=== PATIENT | male | born 1995 | race African-American/Black ===

== ENCOUNTER 2017-06-27 04:14 | Inpatient (IN) | payer OTHER ==
[~2017-06-27] VITALS: Ht 193 cm; Wt 116.6 kg
[2017-06-27] VITALS (8 sets, daily range): BP systolic 128–163; BP diastolic 62–94
[2017-06-27 04:47] LABS: BASOPHILS % 0.5 % (0.0-1.0); EOSINOPHILS # (AUTO) 0.1 (0.0-0.4); EOSINOPHILS % 1.7 % (0.0-6.0); HEMATOCRIT 42.9 % (34.2-44.1); HEMOGLOBIN 14.8 g/dL (12.0-16.0); LYMPHOCYTES # (AUTO) 3.2 (1.0-3.2); LYMPHOCYTES % 53.4 % (18.0-39.1); MEAN CORPUSCULAR HEMOGLOBIN 27.7 pg (28-32); MEAN CORPUSCULAR HGB CONC 34.5 g/dL (31-35); MEAN CORPUSCULAR VOLUME 80.3 fL (81-99); MONOCYTES # (AUTO) 0.6 (0.2-0.8); MONOCYTES % 9.8 % (4.4-11.3); NEUTROPHILS # (AUTO) 2.1 (2.1-6.9); NEUTROPHILS % 34.4 % (38.7-80.0); PLATELET COUNT 207 x10e3/uL (140-360); RED BLOOD COUNT 5.34 x10e6/uL (3.6-5.1); RED CELL DISTRIBUTION WIDTH 13.4 % (11.7-14.4)
--- NOTE | 2017-06-27 05:16 | Diagnostic Imaging Report ---
EXAMINATION: CHEST SINGLE (PORTABLE) INDICATION: Chest pain. COMPARISON: None FINDINGS: TUBES and LINES: None. LUNGS: Lungs are well inflated. Lungs are clear. There is no evidence of pneumonia or pulmonary edema. PLEURA: No pleural effusion or pneumothorax. HEART AND MEDIASTINUM: The cardiomediastinal silhouette is unremarkable. BONES AND SOFT TISSUES: No acute osseous lesion. Soft tissues are unremarkable. UPPER ABDOMEN: No free air under the diaphragm. IMPRESSION: No acute thoracic abnormality. Signed by: Dr. Mckinley Gooden M.D. on 06/27/2017 5:13 AM
[2017-06-27 05:17] LABS: CREATINE KINASE MB 3.4 ng/mL (0-5.0)
[2017-06-27 05:18] LABS: ALBUMIN 4.3 g/dL (3.5-5.0); ALBUMIN/GLOBULIN RATIO 1.1 (0.8-2.0); ANION GAP 15.7 mmol/L (8-16); CALCIUM 9.2 mg/dL (8.4-10.2); CREATININE, SERUM 1.41 mg/dL (0.57-1.11); POTASSIUM 3.7 mmol/L (3.5-5.1)
[2017-06-27] MEDS ORDERED: SODIUM CHLORIDE 0.9% 1000ML 1,000 ML IV ONE (05:30)
[2017-06-27] MEDS ORDERED: SODIUM CHLORIDE 0.9% 1000ML 1,000 ML ONE (05:30)
--- OUTSIDE RECORDS SUMMARY | 2017-06-27 05:44 | XMS REPORT ---
[facility] Address Unknown Phone Unavailable Care Team Providers Care Mold Yard Supervisor Name Role Phone ANGELIQUE COELLO Unavailable Unavailable Problems This patient has no known problems. Allergies, Adverse Reactions, Alerts This patient has no known allergies or adverse reactions. Medications This patient has no known medications. Results Test Description Test Time Test Comments Text Results Atomic Results Result Comments CHEST SINGLE (PORTABLE) [place] [address] Patient Name: YURI WATERS MR #: [id number] : 1995 Age/Sex: 22/F Req #: [id number] Adm Physician: Ordered by: ANGELIQUE COELLO MD Report #: [id number] Location: ER Room/Bed: ___ Procedure: [id number] DX/CHEST SINGLE (PORTABLE) Exam Date: 06/27/17 Exam Time: 0440 REPORT STATUS: Signed EXAMINATION: CHEST SINGLE (PORTABLE) INDICATION: Chest pain. COMPARISON: None FINDINGS: TUBES and LINES: None. LUNGS: Lungs are well inflated. Lungs are clear. There is no evidence of pneumonia or pulmonary edema. PLEURA: No pleural effusion or pneumothorax. HEART AND MEDIASTINUM: The cardiomediastinal silhouette is unremarkable. BONES AND SOFT TISSUES: No acute osseous lesion. Soft tissues are unremarkable. UPPER ABDOMEN: No free air under the diaphragm. IMPRESSION: No acute thoracic abnormality. Signed by: Dr. Mckinley Gooden M.D. on 06/27/2017 5:13 AM Dictated By: MCKINLEY GONZALEZ MD 2 Transcribed By: YURI on 06/27/17512 COPY TO: ANGELIQUE COELLO MD
--- OUTSIDE RECORDS SUMMARY | 2017-06-27 05:44 | XMS REPORT | Clinical Summary ---
Author Author [facility] Address Unknown Phone Unavailable Care Team Providers Care Through Operator Name Role Phone Clif Pepe MD PCP Allergies No Known Allergies Current Medications Prescription Sig. Disp. Refills Start End Date Status Date albuterol (PROAIR Inhale 2 puffs every 6 18 g 11 12/07/19 12/07/19 Active HFA,PROVENTIL (six) hours as needed for 17 18 HFA,VENTOLIN HFA) 90 wheezing. mcg/actuation inhaler Active Problems Not on file Encounters Date Type Specialty Care Team Description 02/20/2017 Telephone Internal Medicine Lyubov Pepe MD Annual physical exam (Primary Dx) 02/15/2017 Telephone Internal Medicine Lyubov Pepe MD Physical exam, pre-employment (Primary Dx) 12/06/2016 Lab Lab Lyubov Pepe MD STD exposure 12/06/2016 Lab Lab Lyubov Pepe MD STD exposure 12/06/2016 Lab Lab Lyubov Pepe MD STD exposure 12/06/2016 Office Visit Internal Medicine Lyubov Pepe MD Testicular pain (Primary Dx); STD exposure after 06/26/2016 Social History Tobacco Use Types Packs/Day Years Used Date Never Smoker Smokeless Tobacco: Never Used Alcohol Use Drinks/Week oz/Week Comments No Sex Assigned at Date Recorded Not on file Last Filed Vital Signs Vital Sign Reading Time Taken Blood Pressure 139/79 12/06/2016 1:15 PM CDT Pulse 78 12/06/2016 1:15 PM CDT Temperature - - Respiratory Rate 16 12/06/2016 1:15 PM CDT Oxygen Saturation 98% 12/06/2016 1:15 PM CDT Inhaled Oxygen - - Concentration Weight 122 kg (269 lb) 12/06/2016 1:15 PM CDT Height 193 cm (6' 4") 12/06/2016 1:15 PM CDT Body Mass Index 32.74 12/06/2016 1:15 PM CDT Plan of Treatment Health Maintenance Due Date Last Done Comments INFLUENZA VACCINE 11/21/2016 Results * US Scrotal (12/11/2016 5:11 PM) Specimen Performing Laboratory [facility] [address] [place] [address] Narrative EXAMINATION:US SCROTAL CLINICAL HISTORY:N50.819 Testicular painunspecified, testicular pain COMPARISON:None. TECHNIQUE:Sonographic evaluation of the scrotum. Real-time B mode grayscale , Doppler spectral analysis and Doppler color flow imaging was used to assess testicular vasculature. FINDINGS: RIGHT HEMISCROTUM: The right testicle measures 4.0 x 2.0 x 2.9 cm.. Testicular echogenicity is normal. No intratesticular masses are identified. There is normal color and duplex Doppler flow. The right epididymis is unremarkable. There is no hydrocele. There is minimal varicocele. LEFT HEMISCROTUM: The left testicle measures 3.9 x 1.8 x 3.1 cm.. Testicular echogenicity is normal. No intratesticular masses are identified. There is normal color and duplex Doppler flow. The left epididymis is unremarkable. There is no hydrocele. There is a small varicocele. There was no evidence of inguinal hernia on either side. IMPRESSION: Normal scrotal ultrasound examination. [facility]-[id number] Procedure Note Interface, Radiology Results Incoming - 12/11/2016 5:33 PM CDT EXAMINATION: US SCROTAL CLINICAL HISTORY: N50.819 Testicular pain unspecified, testicular pain COMPARISON: None. TECHNIQUE: Sonographic evaluation of the scrotum. Real-time B mode grayscale, Doppler spectral analysis and Doppler color flow imaging was used to assess testicular vasculature. FINDINGS: RIGHT HEMISCROTUM: The right testicle measures 4.0 x 2.0 x 2.9 cm.. Testicular echogenicity is normal. No intratesticular masses are identified. There is normal color and duplex Doppler flow. The right epididymis is unremarkable. There is no hydrocele. There is minimal varicocele. LEFT HEMISCROTUM: The left testicle measures 3.9 x 1.8 x 3.1 cm.. Testicular echogenicity is normal. No intratesticular masses are identified. There is normal color and duplex Doppler flow. The left epididymis is unremarkable. There is no hydrocele. There is a small varicocele. There was no evidence of inguinal hernia on either side. IMPRESSION: Normal scrotal ultrasound examination. [facility]-[id number] * Trichomonas vaginalis RNA, Qualitative, TMA, Males (12/06/2016 3:21 PM) Component Value Ref Range Trichomonas vaginalis RNA NOT DETECTED qualitative TMA, males Comment: REFERENCE RANGE: NOT DETECTED This test was performed using the APTIMA(R) Trichomonas vaginalis assay (GEN-PROBE(R)). The analytical performance characteristics of this assay have been determined by [facility]. The modifications have not been cleared or approved by the FDA. This assay has been validated pursuant to the CLIA regulations and is used for clinical purposes. For more information on this test, go to: http://education.[employer]!/faq/Trichomo nastma Specimen Performing Laboratory [facility] * CHLAMYDIA/N. GONORRHOEAE RNA, TMA (12/06/2016 2:03 PM) Component Value Ref Range Chlamydia trachomatis NOT DETECTED NOT DETECTED RNA, TMA Neisseria gonorrhoeae NOT DETECTED NOT DETECTED RNA, TMA (Always message) Comment: This test was performed using the APTIMA COMBO2 Assay ([employer] The analytical performance characteristics of this assay, when used to test SurePath specimens have been determined by [facility]. Specimen Performing Laboratory [facility] * HIV 1/2 ANTIGEN/ANTIBODY, FOURTH GENERATION W/RFL (12/06/2016 2:02 PM) Component Value Ref Range HIV AG/AB 4th gen Non Reactive Non Reactive Specimen Performing Laboratory Blood [facility] Narrative Performed at: [id number] Life Agent: Cayetano Emmanuel MD, Phone:[phone] * RPR screen (12/06/2016 2:02 PM) Component Value Ref Range RPR Non Reactive Non Reactive Specimen Performing Laboratory Blood [facility] Narrative Performed at:[id number] Life Agent: Cayetano Emmanuel MD, Phone:[phone] after 06/26/2016 Insurance Payer Benefit Subscriber ID Type Phone Address Plan / Group xxxxxxxxx [facility] hospital
--- OUTSIDE RECORDS SUMMARY | 2017-06-27 05:44 | XMS REPORT | Clinical Summary ---
Author Author [facility] Address Unknown Phone Unavailable Care Team Providers Care Machinist Mechanic Name Role Phone PCP Unavailable Allergies No Known Allergies Current Medications No known medications Active Problems Not on file Family History Relation Name Status Comments Father Alive Mother Alive Social History Tobacco Use Types Packs/Day Years Used Date Never Smoker Alcohol Use Drinks/Week oz/Week Comments Yes 1 Standard 0.5 occasionally drinks or equivalent Sex Assigned at Date Recorded Not on file Last Filed Vital Signs Not on file Plan of Treatment Health Maintenance Due Date Last Done Comments INFLUENZA VACCINE 01/21/2017 Results Not on fileafter 06/26/2016
[2017-06-27] MEDS: SODIUM CHLORIDE 0.9% 1000ML 1,000 ML IV SCH ×6 (06:22→13:37)
[2017-06-27 07:34] LABS: CHOL/HDL RATIO 3.2 (3.9-4.7)
--- NOTE | 2017-06-27 07:46 | History and Physical ---
PRIMARY CARE PHYSICIAN: Dr. Cates in [place]. CHIEF COMPLAINT: Chest discomfort. HISTORY OF PRESENT ILLNESS: This is a 22-year-old man with a history of asthma, who developed chest tightness over the past few days without any shortness of breath, dizziness or diaphoresis. The patient admits to have been taking Pre-Workout or "black market cuts" for enhanced workout capabilities. He has been starting cross-fit 1 week ago. Now, the patient was found to have markedly elevated CPK of 7000. He is admitted for further evaluation and management. PAST MEDICAL HISTORY: Asthma. PAST SURGICAL HISTORY: None. ALLERGIES: PER ELECTRONIC MEDICAL RECORD. FAMILY HISTORY: No heart disease. SOCIAL HISTORY: The patient is single. He has no children. No alcohol, illicits or cigarettes. He works as a dispatcher. MEDICATIONS: Per electronic medical record. REVIEW OF SYSTEMS: Denies any dizziness or shortness of breath. PHYSICAL EXAMINATION VITAL SIGNS: Have been reviewed. GENERAL: In no acute distress. Resting in bed. HEENT: Anicteric. CARDIOVASCULAR: Normal S1 and S2. LUNGS: He has good breath sounds. ABDOMEN: Soft, nontender and nondistended. EXTREMITIES: No edema or calf tenderness. NEUROLOGICAL: He is alert and oriented times 3. Moving all extremities. SKIN: Dry. PSYCHIATRIC: Normal affect. LABS: Reviewed. MEDICATIONS: Reviewed. ASSESSMENT AND PLAN: This is a 22-year-old man with: 1. Acute rhabdomyolysis likely secondary to black market cuts, which is some type of anabolic material: Will rehydrate the patient with normal saline at 200 mL an hour. Will give 3 L boluses now. 2. Acute kidney injury: Rehydrate and reassess. 3. Acute transaminitis: Again, likely secondary to the exercise enhancer. 4. Obesity: Screen for diabetes and obtain lipid panel. 5. Prophylaxis: Heparin. 6. Disposition: Monitor closely. Follow up labs. Job#: [id number] SANG
--- NOTE | 2017-06-27 07:47 | History and Physical ---
ADDENDUM The patient also had chest discomfort. First cardiac enzyme is negative. Will obtain a second. Will obtain a 2-D echocardiogram. Job#: [id number] RI
[2017-06-27] MEDS: HEPARIN SOD (PORCINE) 5,000 UNIT/ML VIAL SC SCH ×2 (08:01→20:52)
[2017-06-27] MEDS: FAMOTIDINE 20 MG TAB PO SCH ×2 (08:01→17:28)
[2017-06-27 12:35] LABS: CREATINE KINASE MB 2.7 ng/mL (0-5.0)
[2017-06-27] MEDS ORDERED: PANTOPRAZOLE 40 MG 10ML VIAL ONE (16:30)
[2017-06-28] VITALS (7 sets, daily range): BP systolic 130–153; BP diastolic 63–76
[2017-06-28 00:12] LABS: AMPHETAMINES SCREEN,URINE NEGATIVE (NEGATIVE); BENZODIAZEPINES SCREEN,URINE NEGATIVE (NEGATIVE); PHENCYCLIDINE SCREEN,URINE NEGATIVE (NEGATIVE)
[2017-06-28] MEDS: SODIUM CHLORIDE 0.9% 1000ML 1,000 ML IV SCH ×5 (01:43→15:40)
[2017-06-28] MEDS ORDERED: SODIUM CHLORIDE 0.9% 1000ML 3,000 ML IV ONE (06:30)
[2017-06-28 07:01] LABS: ANION GAP 13.2 mmol/L (8-16); BLOOD UREA NITROGEN 11 mg/dL (7-26); BUN/CREATININE RATIO 9 (6-25); CALCIUM 9.4 mg/dL (8.4-10.2); CARBON DIOXIDE 24 mmol/L (22-29); CHLORIDE 109 mmol/L (98-107); CREATINE KINASE 3872 IU/L (30-200); CREATININE, SERUM 1.25 mg/dL (0.72-1.25); EST GLOMERULAR FILTRATION RATE > 60 ML/MIN (60-); GLUCOSE 92 mg/dL (74-118); POTASSIUM 4.2 mmol/L (3.5-5.1); SODIUM 142 mmol/L (136-145)
[2017-06-28 07:26] LABS: CHOL/HDL RATIO 3.2 (3.9-4.7); CHOLESTEROL 104 MD/DL (0-199); HDL CHOLESTEROL 33 MG/DL (40-60); LDL CHOLESTEROL 58 MG/DL (60-130); TRIGLYCERIDES 65 MG/DL (0-149)
[2017-06-28] MEDS: FAMOTIDINE 20 MG TAB PO SCH ×2 (07:37→16:44)
--- NOTE | 2017-06-28 08:49 | Progress Note ---
DATE: June 28, 2017 TIME: 6:00 a.m. OVERNIGHT: No events. REVIEW OF SYSTEMS: Denies any dizziness, chest pain. PHYSICAL EXAMINATION: VITAL SIGNS: Reviewed. GENERAL APPEARANCE: Tired-appearing man resting in bed. HEENT: Anicteric. CARDIOVASCULAR: Normal S1 and S2. LUNGS: Moderate breath sounds. ABDOMEN: Soft, nontender, nondistended. EXTREMITIES: No edema or calf tenderness. NEUROLOGICAL: Alert and oriented x3. Moving all extremities. SKIN: Dry. PSYCHIATRIC: Normal affect. LABS: Reviewed. MEDICATIONS: Reviewed. ASSESSMENT: A 22-year-old man. 1. Acute rhabdomyolysis. 2. Acute kidney injury. 3. Acute transaminitis. 4. Obesity. 5. Chest discomfort. PLAN: 1. His LDL is 44, triglyceride 115. 2. Creatine kinase was 7000, then 5000, last 3000. Will give him an additional 3 L bolus now. 3. Hemoglobin A1c is 5.3. 4. His renal function is improving. 5. Troponins were negative x2. 6. Follow up echocardiogram. 7. Continue fluid resuscitation. Follow creatine kinase. 8. His echocardiogram showed normal left ventricular ejection fraction of 50% to 55%, diastolic filling pattern is normal. Job#: [id number]
[2017-06-28] MEDS: HEPARIN SOD (PORCINE) 5,000 UNIT/ML VIAL SC SCH ×2 (09:44→20:49)
[2017-06-29] VITALS (8 sets, daily range): BP systolic 130–150; BP diastolic 60–69
[2017-06-29] MEDS: SODIUM CHLORIDE 0.9% 1000ML 1,000 ML IV SCH ×3 (01:59→20:08)
[2017-06-29 06:31] LABS: BASOPHILS % 0.5 % (0.0-1.0); EOSINOPHILS # (AUTO) 0.1 (0.0-0.4); EOSINOPHILS % 1.3 % (0.0-6.0); HEMOGLOBIN 14.1 g/dL (14.0-18.0); LYMPHOCYTES % 36.3 % (18.0-39.1); MEAN CORPUSCULAR HEMOGLOBIN 27.8 pg (28-32); MEAN CORPUSCULAR HGB CONC 34.4 g/dL (31-35); MEAN CORPUSCULAR VOLUME 80.9 fL (81-99); MONOCYTES # (AUTO) 0.5 (0.2-0.8); MONOCYTES % 8.2 % (4.4-11.3); NEUTROPHILS % 53.7 % (38.7-80.0); PLATELET COUNT 183 x10e3/uL (140-360); RED BLOOD COUNT 5.07 x10e6/uL (4.3-5.7); RED CELL DISTRIBUTION WIDTH 13.2 % (11.7-14.4)
[2017-06-29] MEDS: FAMOTIDINE 20 MG TAB PO SCH ×2 (07:36→16:11)
[2017-06-29 07:56] LABS: ANION GAP 14.2 mmol/L (8-16); BLOOD UREA NITROGEN 10 mg/dL (7-26); BUN/CREATININE RATIO 8 (6-25); CALCIUM 9.5 mg/dL (8.4-10.2); CARBON DIOXIDE 24 mmol/L (22-29); CHLORIDE 108 mmol/L (98-107); CREATINE KINASE 2040 IU/L (30-200); CREATININE, SERUM 1.28 mg/dL (0.72-1.25); EST GLOMERULAR FILTRATION RATE > 60 ML/MIN (60-); GLUCOSE 94 mg/dL (74-118); MAGNESIUM 2.1 MG/DL (1.3-2.1); PHOSPHORUS 4.2 MG/DL (2.3-4.7); POTASSIUM 4.2 mmol/L (3.5-5.1); SODIUM 142 mmol/L (136-145)
[2017-06-29] MEDS: HEPARIN SOD (PORCINE) 5,000 UNIT/ML VIAL SC SCH ×2 (10:05→22:20)
[2017-06-30] VITALS: BP 147/80
[2017-06-30] MEDS: SODIUM CHLORIDE 0.9% 1000ML 1,000 ML IV SCH ×2 (02:16→10:05)
[2017-06-30 04:00] VITALS: BP 124/68
[2017-06-30 07:27] LABS: BASOPHILS % 0.6 % (0.0-1.0); EOSINOPHILS # (AUTO) 0.1 (0.0-0.4); EOSINOPHILS % 1.9 % (0.0-6.0); HEMATOCRIT 42.5 % (38.2-49.6); HEMOGLOBIN 14.9 g/dL (14.0-18.0); LYMPHOCYTES # (AUTO) 1.8 (1.0-3.2); LYMPHOCYTES % 37.8 % (18.0-39.1); MEAN CORPUSCULAR HEMOGLOBIN 28.1 pg (28-32); MEAN CORPUSCULAR HGB CONC 35.1 g/dL (31-35); MONOCYTES # (AUTO) 0.6 (0.2-0.8); MONOCYTES % 11.6 % (4.4-11.3); NEUTROPHILS # (AUTO) 2.3 (2.1-6.9); NEUTROPHILS % 47.7 % (38.7-80.0); PLATELET COUNT 192 x10e3/uL (140-360); RED BLOOD COUNT 5.31 x10e6/uL (4.3-5.7); RED CELL DISTRIBUTION WIDTH 13.1 % (11.7-14.4)
[2017-06-30 07:30] VITALS: BP 124/68
[2017-06-30] MEDS: FAMOTIDINE 20 MG TAB PO SCH (07:30)
[2017-06-30 08:07] VITALS: BP 142/64
[2017-06-30 08:08] LABS: ALANINE AMINOTRANSFERASE 34 IU/L (0-55); ALBUMIN 3.8 g/dL (3.5-5.0); ALBUMIN/GLOBULIN RATIO 1.1 (0.8-2.0); ALKALINE PHOSPHATASE 64 IU/L (40-150); ANION GAP 13.1 mmol/L (8-16); BLOOD UREA NITROGEN 11 mg/dL (7-26); BUN/CREATININE RATIO 8 (6-25); CARBON DIOXIDE 25 mmol/L (22-29); CHLORIDE 107 mmol/L (98-107); CREATININE, SERUM 1.31 mg/dL (0.72-1.25); EST GLOMERULAR FILTRATION RATE > 60 ML/MIN (60-); GLUCOSE 94 mg/dL (74-118); POTASSIUM 4.1 mmol/L (3.5-5.1); SODIUM 141 mmol/L (136-145)
[2017-06-30] MEDS: HEPARIN SOD (PORCINE) 5,000 UNIT/ML VIAL SC SCH (09:00)
--- NOTE | 2017-06-30 12:02 | Discharge Summary ---
FINAL DISCHARGE DIAGNOSES 1. Rhabdomyolysis, likely secondary to excessive exercise workout including rqqb-rer-empmpqw medication called Hydroxycut. 2. Acute kidney injury secondary to #1, resolved. 3. Morbidly obese. 4. Elevated transaminases secondary to muscle breakdown. ASSISTANT PASTRY CHEF: None. VITAL SIGNS: Temperature is 96.9, pulse 60, respiratory rate 16, blood pressure 142/64, pulse oximetry 98% on room air. LAB FINDINGS: Sodium 141, potassium 4.1, chloride 107, bicarb 25, anion gap 13, BUN 11, creatinine 1.3, glucose ____. Hemoglobin A1c 5.3. Calcium 9. LFTs are back to normal. T-bili 1.1, AST 22, ALT 34, alk phos 64. CK on discharge was 967. Troponins were negative. Albumin 3.8. LDL was 328, HDL 33. Coagulation: D-dimer ____. Toxicology screen and urine drug screen found to be negative. CBC: WBC 4.8, hemoglobin 14.9, hematocrit 42, platelets 192. MICROBIOLOGY: None. IMAGING STUDIES: Chest x-ray showed no acute thoracic abnormality. Otherwise, negative chest x-ray. HOSPITAL COURSE: This is a 22-year-old male who came into the ED with complaints of generalized weakness and fatigue. The patient was found to have elevated CK level while in the hospital and was admitted for underlying rhabdomyolysis. Patient was started on IV fluids at a higher rate with much improvement. He denied any myalgias. His discharge CK was 957, and he wanted to go home. The patient was also taking blmc-hwi-hjvrhzu Hydroxycut for exercise, likely leading to his underlying rhabdomyolysis as well. He also does strenuous exercises for body building. He denies any protein supplements. The patient was improved and had no other complaints. I discussed with him not to take any more bkzc-guh-qbnncmn supplements and to drink water frequently while doing exercises at home. He verbalized an understanding. He also has underlying acute kidney injury secondary to the rhabdomyolysis, which improved prior to discharge home. His elevated LFTs were due to muscle breakdown which were back to normal prior to discharge home. On the day of discharge, vital signs were stable. Labs were reviewed and stable. Patient was seen and evaluated and examined thoroughly on the day of discharge with no new complaints. Patient verbalized an understanding and agrees with the plan of care to follow up accordingly as an outpatient with his primary care physician with repeat CK level in the next 1 week. The patient verbalized that he will drink more fluids while he is exercising and also avoid the caqx-ced-kyaixde medications. DISCHARGE MEDICATIONS: See medication reconciliation form. DISPOSITION: Home. CONDITION AT DISCHARGE: Stable. DIET: Heart-healthy. FOLLOWUP: With your primary care physician in 1 week. In the event of any worsening symptoms, the patient was advised to come back to the ED for further evaluation. Job#: [id number]
== END 2017-06-30 11:43 | disposition home or self-care (01) | DRG 918 ==
LOC: EDSEX 04:14 → ER 04:14 → IMCU 05:42 → OBSVTOIN 06-28 07:47 → MED/SURG 06-29 13:59
PROVIDERS: ADMIT Internal Medicine; ATTEND Internal Medicine
DX: T38.7X1A Poisoning by androgens and anabolic congeners, accidental (unintentional), initial encounter (principal); N17.9 Acute kidney failure, unspecified; T79.6XXA Traumatic ischemia of muscle, initial encounter; E66.01 Morbid (severe) obesity due to excess calories; W31.9XXA Contact with unspecified machinery, initial encounter; R74.0 Nonspecific elevation of levels of transaminase and lactic acid dehydrogenase [LDH]; Z68.31 Body mass index [BMI] 31.0-31.9, adult
CPT/HCPCS: 36415; 71045; 80048; 80053; 80061; 80307; 82550; 82553; 83036; 83735; 84100; 84484; 85025; 85379; 93005; 93306; 96372; 99284; G0378; J1644; J7030